=== PATIENT | female | born 1985 | race Caucasian/White ===

== ENCOUNTER 2016-12-25 16:05 | Emergency (ER) | payer OTHER ==
[2016-12-25 16:13] VITALS: BP 130/70
--- NOTE | 2016-12-25 16:26 | UC ---
Dental HPI - HPI Summary HPI Summary: Pt presents with c/o right lower jaw dental and jaw pain. Pt states that she has dentures for upper teeth and no teeth on bottom except 1 molar on right side that she reports that she felt a piece break off 2 months ago. Pt now states that the tooth is now just along the gum line and is painful. - History of Current Complaint Chief Complaint: UCDentalProblem Stated Complaint: DENTAL PAIN Time Seen by Provider: 12/25/16 16:08 Hx Obtained From: Patient Hx Last Menstrual Period: 12/07/16 ?: No Onset/Duration: Gradual Onset, Lasting Days - 7, Still Present Severity: Mild Aggravating: Heat, Cold, Chewing Alleviating: Nothing Related History: Other - dental fracture. - Allergies/Home Medications Allergies/Adverse Reactions: Allergies Allergy/AdvReac Type Severity Reaction Status Date / Time Doxycycline Allergy Severe Anaphylatic Verified 12/25/16 16:13 Shock Metronidazole [From Flagyl] Allergy Severe Anaphylatic Verified 12/25/16 16:13 Shock Naproxen Allergy Severe Anaphylatic Verified 12/25/16 16:13 Shock Sulfa Drugs Allergy Severe Anaphylatic Verified 12/25/16 16:13 Shock Tramadol Allergy Severe Anaphylatic Verified 12/25/16 16:13 Shock Codeine Allergy Mild Itching Verified 12/25/16 16:13 Ketorolac Allergy Anaphylatic Verified 12/25/16 16:13 Shock colored tattoo ink Allergy Intermediate scabs/redne Uncoded 12/25/16 16:13 ss PMH/Surg Hx/FS Hx/Imm Hx Previously Healthy: No - history of tongue cancer Psychological History: Anxiety Cancer History: Other - tongue Other Cancer History: tongue - Surgical History Surgical History: Yes Surgery Procedure, Year, and Place: 2005- C- section. 2011- lithotripsy. 2011 - tongue biopsy;and subsequent surgery 12/31. Gastric sleeve november 2015 - Family History Known Family History: Positive: Hypertension, Diabetes - Social History Occupation: Employed Full-time Lives: With Family Alcohol Use: None Substance Use Type: None Smoking Status (MU): Never Smoked Tobacco Have You Smoked in the Last Year: No Review of Systems Constitutional: Negative Skin: Negative Eyes: Negative ENT: Dental Pain Respiratory: Negative Cardiovascular: Negative Gastrointestinal: Negative Genitourinary: Negative Motor: Negative Neurovascular: Negative Musculoskeletal: Negative Neurological: Negative Psychological: Negative All Other Systems Reviewed And Are Negative: Yes Physical Exam Triage Information Reviewed: Yes Appearance: Well-Appearing Vital Signs: Initial Vital Signs Temp 97.9 F 12/25/16 16:07 Pulse 95 12/25/16 16:07 Resp 16 12/25/16 16:07 BP 130/70 12/25/16 16:07 Pulse Ox 100 12/25/16 16:07 Vital Signs Reviewed: Yes Eye Exam: Normal ENT Exam: Other ENT: Positive: Other: - right side jaw tenderness, left side of tongue,lateral aspect, small white patch, scar tissue? small indentation, suggestive of past surgery to tongue Dental Exam: Other Dental: Positive: Dental Fracture @ - right lower jaw,, Other: - upper dentures in place Neck exam: Other Neck: Positive: Enlarged Nodes @ - right submandibular Respiratory Exam: Normal Cardiovascular Exam: Normal Musculoskeletal Exam: Normal Neurological Exam: Normal Psychological Exam: Normal Skin Exam: Normal Dental Complaint Course/Dx - Differential Dx/Diagnosis Differential Diagnosis/Dx: Dental Abscess, Fractured Tooth Provider Diagnoses: dental fracture. dental abscess Discharge - Discharge Plan Condition: Stable Disposition: HOME Prescriptions: Amoxicillin PO (*) [Amoxicillin 875 MG (*)] 875 mg PO BID #20 tab methylPREDNISolone TAB* [Medrol TAB*] 4 - 8 mg PO .SEE SAÚL #1 saúl Patient Education Materials: Acute Dental Trauma (ED), Toothache (ED) Referrals: Daysi Pool MD [Primary Care Provider] - If Needed Emiliano Jones DMD [Doctor of Dental Medicine] - Additional Instructions: Please establish care with a Dental care provider. We have provided a list of dental care providers and a referral to an Oral surgeon.
== END 2016-12-25 16:42 | disposition home or self-care (01) ==
LOC: UCCORT 16:05
DX: K03.81 Cracked tooth (principal); K04.7 Periapical abscess without sinus; Z88.3 Allergy status to other anti-infective agents; Z88.6 Allergy status to analgesic agent; Z88.5 Allergy status to narcotic agent; Z85.810 Personal history of malignant neoplasm of tongue; F41.9 Anxiety disorder, unspecified; Z98.84 Bariatric surgery status
CPT/HCPCS: 99212; G0463

== ENCOUNTER 2019-01-26 16:29 | Emergency (ER) | payer OTHER ==
--- OUTSIDE RECORDS SUMMARY | 2019-01-26 16:39 | XMS REPORT | Continuity of Care Document ---
:1985 External Reference #:[id number] Author Name Garrick Perkins MD (transmitted by agent of provider Khalif Mackey) Address [address] [place] [id number] Care Team Providers Name Role Phone Steve Lenz MD - Internal Medicine Care Team Information Publications Designer Dawna Powers MD - Care Team Information Publications Designer [phone] Ophthalmology Eufemia Kiser M.D. - Internal Medicine Care Team Information Publications Designer Problems Active Problems Provider Date Morbid obesity Loly Ca M.D. Onset: 01/02/2015 Daily headache Loly Ca M.D. Onset: 01/02/2015 Social History Type Date Description Comments Sex Unknown ETOH Use Rarely consumes alcohol Tobacco Use Start: Unknown Patient has never smoked Recreational Drug Use Former Drug User Smoking Status Reviewed: 01/24/19 Patient has never smoked Allergies, Adverse Reactions, Alerts Active Allergies Reaction Severity Comments Date Flagyl 01/02/2015 Doxycycline 01/02/2015 Tramadol 01/02/2015 Toradol 01/02/2015 Codeine 01/02/2015 Sulfa 01/02/2015 Ibuprofen gastric surgery 07/24/2018 Medications Active Medications SIG Qnty Indications Ordering Provider Date Buspirone HCL 1 by mouth three Unknown 10mg Tablets times a day Xanax As needed for Unknown 0.5mg Tablets anxiety Levothyroxine Sodium 1 by mouth every Unknown 125mcg day Tablets Tylenol PM 3 tablets at Unknown Tablets bedtime Lamotrigine take 1 pill by Unknown 150mg Tablets mouth twice a day [place] Carbonate 1 by mouth every Unknown 600mg day Capsules Medications Administered in Office Medication SIG Qnty Indications Ordering Provider Date Celestone 3 mg and 3mg Garrick Perkins MD 07/24/2018 Injection Immunizations Description No Information Available Vital Signs Date Vital Result Comment 01/24/2019 9:59am Height 66 inches 5'6" Weight 295.00 lb Heart Rate 79 /min BP Systolic Sitting 128 mmHg BP Diastolic Sitting 86 mmHg Respiratory Rate 18 /min Pain Level 6 O2 % BldC Oximetry 99 % BMI (Body Mass Index) 47.6 kg/m2 07/24/2018 8:40am Height 66 inches 5'6" Weight 290.00 lb BP Systolic Sitting 108 mmHg BP Diastolic Sitting 76 mmHg Respiratory Rate 18 /min Pain Level 8 tylenol for pain BMI (Body Mass Index) 46.8 kg/m2 Results Description No Information Available Procedures Description No Information Available Medical Devices Description No Information Available Encounters Description No Information Available Assessments Date Code Description Provider 01/24/2019 S93.431A Sprain of tibiofibular ligament of right Garrick Perkins MD ankle, initial encounter 01/24/2019 S93.411A Sprain of calcaneofibular ligament of right Garrick Perkins MD ankle, initial encounter Plan of Treatment Future Appointment(s):02/14/2019 9:00 am - Garrick Perkins MD at [facility] AT [facility]15/05/2019 - Garrick Perkins [id number] Sprain of tibiofibular ligament of right ankle, initial encounterFollow up:Follow up: 3 [id number] Sprain of calcaneofibular ligament of right ankle, initial encounter Functional Status Description No Information Available Mental Status Description No Information Available Referrals Description No Information Available
--- NOTE | 2019-01-26 16:53 | UC ---
Eye Complaint HPI - HPI Summary HPI Summary: 33 y/o female presents to the urgent care c/o RT eye irritation w/ a FB sensation since she woke up this morning. Approx. around 1300pm her left eye also started to feel w/ itchiness. Pt states she has been rubbing her RT eye a lot and it is getting worse since it is now red and w/ clear drainage and a lot of discomfort. She denies wearing contact lenses, but wear glasses. She denies using make up or facial lotions. Pt denies eye pain, ROBERT, dizziness, photophobia , visual disturbance, SOB, fever, chest pain,abdominal pain, N/V/d. She has used clear drops to irrigate her eye w/o any improvement. - History of Current Complaint Stated Complaint: BILAT EYE CONCERN Time Seen by Provider: 01/26/19 16:52 Hx Obtained From: Patient Hx Last Menstrual Period: 07/12/18 ?: No Onset/Duration: Sudden Onset, Lasting Hours - 8hrs Timing: Constant Severity Initially: Mild Severity Currently: Mild Pain Intensity: 0 Pain Scale Used: 0-10 Numeric Location of Injury: Conjunctiva - RT eye redness w/ clear eye discharge w/ FB sensation Character: Foreign Body Sensation Aggravating Factor(s): Blinking Alleviating Factor(s): Nothing Associated Signs And Symptoms: Positive: Drainage (Clear). Negative: Photophobia, Drainage (Purulent), Vision Impairment Bilateral, Fever, Swelling Related History: Similar Episode - Risk Factors Penetrating Injury Risk Factor: Negative Globe Rupture Risk Factors: Negative Acute Glaucoma Risk Factors: Negative Optic Artery Occlusion Risk Factors: Negative - Allergies/Home Medications Allergies/Adverse Reactions: Allergies Allergy/AdvReac Type Severity Reaction Status Date / Time codeine Allergy Itching, Verified 01/26/19 16:56 Subjective Tightness of Throat doxycycline Allergy Itching, Verified 01/26/19 16:56 Subjective Tightness of Throat ibuprofen Allergy Avoids due Verified 01/26/19 16:56 to Gastric Sleeve 2016 ketorolac [From Toradol] Allergy Itching, Verified 01/26/19 16:56 Subjective Tightness of Throat metronidazole Allergy Itching, Verified 01/26/19 16:56 Subjective Tightness of Throat naproxen Allergy Itching, Verified 01/26/19 16:56 Subjective Tightness of Throat Sulfa (Sulfonamide Allergy Itching, Verified 01/26/19 16:56 Antibiotics) Subjective Tightness of Throat tramadol Allergy Possible Verified 01/26/19 16:56 Anaphlaxis colored tattoo ink Allergy Intermediate scabs/redne Uncoded 01/26/19 16:56 ss PMH/Surg Hx/FS Hx/Imm Hx Previously Healthy: Yes Endocrine History: Hypothyroidism GI/ History: Kidney Stones Psychological History: Depression, Bipolar Disorder - Surgical History Surgical History: Yes Surgery Procedure, Year, and Place: 2005- C- section. 2011- lithotripsy. 2011 - tongue biopsy;and subsequent surgery 12/31. Gastric sleeve november 2015 - Family History Known Family History: Positive: Hypertension, Diabetes - Social History Occupation: Employed Full-time Lives: With Family Alcohol Use: None Substance Use Type: Prescribed Smoking Status (MU): Never Smoked Tobacco Have You Smoked in the Last Year: No Review of Systems All Other Systems Reviewed And Are Negative: Yes Constitutional: Positive: Negative Skin: Positive: Negative Eyes: Positive: Drainage - B/l eye clear discharge w/ itchiness, Eye Redness - RT eye redness and FB sensation. Negative: Blurred Vision, Photophobia ENT: Positive: Negative Respiratory: Positive: Negative Cardiovascular: Positive: Negative Gastrointestinal: Positive: Negative Genitourinary: Positive: Negative Motor: Positive: Negative Neurovascular: Positive: Negative Musculoskeletal: Positive: Negative Neurological: Positive: Negative Psychological: Positive: Negative Is Patient Immunocompromised?: No Physical Exam - Summary Physical Exam Summary: Vital Signs Reviewed: Yes General: Well appearing, well nourished female in no apparent pain distress Eyes: Positive: RT eye with conjunctiva injected w/ watery clear discharge, sclera is white. LF eye conjunctiva w/ mild redness and no eye discharge. B/L PERRLA, EOMI w/o any nystagmus or strabismus. Fundi appears benign. Disks are well delineated. There are no hemorrhages or exudates. Visual acuity is 20/20 bilaterally, and visual sahu are within normal limits. No foreign body under eyelids observed with naked eye.Visual sahu: full to confrontation. No ciliary flush. No chemosis, No photophobia. Normal fundoscopic exam; no proptosis, exophthalmos, nystagmus. ENT: Positive: Normal ENT inspection, Hearing grossly normal, Pharynx normal, Nasal congestion, Nasal drainage - clear, TMs normal - B/L external ear canal clear , TM's WNL. Negative: Tonsillar swelling, Tonsillar exudate Neck: Positive: Supple, Nontender, No Lymphadenopathy Respiratory: Positive: Chest nontender, Lungs clear, Normal breath sounds, No respiratory distress Cardiovascular: Positive: RRR, No Murmur, Pulses Normal, Brisk Capillary Refill Abdomen Description: Positive: Nontender, No Organomegaly, Soft. Negative: CVA Tenderness (R), CVA Tenderness (L) Bowel Sounds: Positive: Present Musculoskeletal: Positive: Strength Intact, ROM Intact, No Edema Neurological Exam: Normal Psychological Exam: Normal Skin Exam: Normal Triage Information Reviewed: Yes Eye Complaint Course/Dx - Course Course Of Treatment: 33 y/o female presents to the urgent care c/o RT eye irritation w/ a FB sensation since she woke up this morning. Approx. around 1300pm her left eye also started to feel w/ itchiness. Pt states she has been rubbing her RT eye a lot and it is getting worse since it is now red and w/ clear drainage and a lot of discomfort. She denies wearing contact lenses, but wear glasses. She denies using make up or facial lotions. Pt denies eye pain, ROBERT, dizziness, photophobia , visual disturbance, SOB, fever, chest pain,abdominal pain, N/V/d. She has used clear drops to irrigate her eye w/o any improvement. Hx obtained. RT eye with conjunctiva injected w/ watery clear discharge, sclera is white. LF eye conjunctiva w/ mild redness and no eye discharge. B/L PERRLA, EOMI w/o any nystagmus or strabismus. Fundi appears benign. Disks are well delineated. There are no hemorrhages or exudates. Visual acuity is 20/20 bilaterally, and visual sahu are within normal limits. No foreign body under eyelids observed with naked eye. 2 drops of Tetracaine optha drops placed on Pts both eyes, then irrigated with saline drops to flush any foreign particles, then fluorescein instillation and examination with a UV lamp. Positive corneal abrasion observed at RT eye cornea 10-12 oclock. left eye cornea w/o any abrasions or ulcers. No foreign body identified. After procedure Pt felt better. Pt's Rt eye covered w/ ey patch for 1 day. Pt Rx Ciprofloxacin ophthalmic drops as directed below. Pt strongly advised to f/u w/ funding specialist DR Powers or Samuel as soon as possible for further management on her corneal abrasion. D/C instructions explained. Pt understood and agreed w/ plan of care.. - Differential Dx/Diagnosis Differential Diagnosis/HQI/PQRI: Conjunctivitis, Foreign Body, Penetrating Injury, Periorbital Cellulitis, Orbital Cellulitis, Uveitis Provider Diagnosis: Right corneal abrasion Discharge ED - Sign-Out/Discharge Documenting (check all that apply): Patient Departure - D/C home All imaging exams completed and their final reports reviewed: No Studies - Discharge Plan Condition: Stable Disposition: HOME Prescriptions: Ciprofloxacin 0.3% OPTH.YAHAIRA* [Cipro 0.3% Opth*] 1 drop RIGHT EYE Q2H #1 btl Patient Education Materials: Corneal Abrasion (ED) Referrals: Eufemia Kiser MD [Primary Care Provider] - 3 Days Dawna Powers MD [Medical Doctor] - 1 Day Additional Instructions: 1-Please apply ciprofloxacin ophthalmic drops as instructed and finish the full course of treatment to avoid recurrent infection. 2- Keep your RT eye cover w/ eye patch for 1 day for comfort 3-Please f/u with funding specialist Dr Powers or Samuel in 1-2 days for further evaluation and treatment on your Corneal abrasion. - Billing Disposition and Condition Condition: STABLE Disposition: Home
[2019-01-26 17:01] VITALS: BP 118/53
[2019-01-26] MEDS ORDERED: Eye Irrigation Solution 30 ML BOTTLE BOTH EYES ONE (17:14)
[2019-01-26] MEDS ORDERED: Tetracaine 0.5% OPTH.SOL 4 ML* 1 DROP BTL BOTH EYES ONE (17:14)
[2019-01-26] MEDS ORDERED: Fluorescein Sodium TOPICAL* 1 MG TEST STRIP OPHTHALMIC ONE (17:14)
== END 2019-01-26 17:57 | disposition home or self-care (01) ==
LOC: UCCORT 16:29
DX: S05.01XA Injury of conjunctiva and corneal abrasion without foreign body, right eye, initial encounter (principal); X58.XXXA Exposure to other specified factors, initial encounter; Y93.84 Activity, sleeping; Y92.003 Bedroom of unspecified non-institutional (private) residence as the place of occurrence of the external cause
CPT/HCPCS: 99212; A9270-GY; G0463